=== PATIENT | male | born 1975 | race Caucasian/White ===

== ENCOUNTER 2016-11-30 03:06 | Emergency (ER) | payer BC ==
[2016-11-30 03:17] VITALS: BP 134/86
[2016-11-30] MEDS ORDERED: Ondansetron ODT TAB* 4 MG PO ONE (03:29)
[2016-11-30] MEDS ORDERED: LORazepam TAB(*) 1 MG PO ONE (03:29)
--- NOTE | 2016-11-30 03:33 | ED ---
Edie Couch Edward, scribed for Bronson Maradiaga MD on 11/30/16 at 0314 . Psychiatric Complaint - HPI Summary HPI Summary: 41 y/o male presents to ED c/o anxiety and sleep disturbance for several days. Patient's anxiety is mostly job related, which became worse in the last week. Associated sx: nausea and diarrhea. Pt states he has a terrible job and has problems with his boss. He states that his symptoms are worse tonight because he knows he has work tomorrow. Allergic to penicillin. - History Of Current Complaint Chief Complaint: EDGeneral Hx Obtained From: Patient Onset/Duration: Lasting Days, Still Present Timing: Weeks - around 1 week Character: Anxious Aggravating Factor(s): Recent Stress - Job related stress Associated Signs And Symptoms: Positive: Sleep Disturbance - Allergies/Home Medications Allergies/Adverse Reactions: Allergies Allergy/AdvReac Type Severity Reaction Status Date / Time Penicillins [PCN] Allergy Unknown Verified 08/10/15 09:51 Reaction Details PMH/Surg Hx/FS Hx/Imm Hx Previously Healthy: No Respiratory History: Reports: Hx Asthma Infectious Disease History: Denies: Traveled Outside the [place] in Last 30 Days - Social History Occupation: Employed Full-time Lives: With Family Alcohol Use: None Hx Substance Use: No Substance Use Type: Reports: None Hx Tobacco Use: Yes Smoking Status (MU): Current Some Day Smoker - no cigarettes. a few cigars per week Type: Cigars Review of Systems Constitutional: Negative Eyes: Negative ENT: Negative Cardiovascular: Negative Respiratory: Negative Positive: Diarrhea, Nausea Genitourinary: Negative Musculoskeletal: Negative Skin: Negative Neurological: Negative Positive: Anxious, Other - Sleep disturbance All Other Systems Reviewed And Are Negative: Yes Physical Exam Triage Information Reviewed: Yes Vital Signs On Initial Exam: Initial Vitals Temp Pulse Resp BP Pulse Ox 97.1 F 61 20 134/86 98 11/30/16 03:12 11/30/16 03:12 11/30/16 03:12 11/30/16 03:12 11/30/16 03:12 Vital Signs Reviewed: Yes Appearance: Positive: Well-Appearing, No Pain Distress Skin: Positive: Warm Head/Face: Positive: Normal Head/Face Inspection Eyes: Positive: CECILIA ENT: Positive: Hearing grossly normal Neck: Positive: Supple Respiratory/Lung Sounds: Positive: Breath Sounds Present Cardiovascular: Positive: RRR Abdomen Description: Positive: Nontender, Soft Musculoskeletal: Positive: Strength/ROM Intact Neurological: Positive: Alert, Oriented to Person Place, Time, Normal Gait Psychiatric: Positive: Anxious Diagnostics - Vital Signs Vital Signs Temp Pulse Resp BP Pulse Ox 11/30/16 03:12 97.1 F 61 20 134/86 98 - Laboratory Lab Statement: Any lab studies that have been ordered have been reviewed, and results considered in the medical decision making process. Re-Evaluation - Re-Evaluation First Eval Comment: pt requesting help with sleep tonight, pt d/c home with ativan x 1, states he will f/u with pcp/therapist Course/Dx - Course Assessment/Plan: 41 y/o male presents to ED c/o anxiety and sleep disturbance for several days. Patient's anxiety is mostly job related, which became worse in the last week. Associated sx: nausea and diarrhea. Pt states he has a terrible job and has problems with his boss. He states that his symptoms are worse tonight because he knows he has work tomorrow. Allergic to penicillin. Patient will be discharged with insomnia. - Differential Dx/Clinical Impression Provider Diagnosis: Insomnia Discharge - Discharge Plan Condition: Stable Disposition: HOME Patient Education Materials: Insomnia (ED) Forms: *Work Release Referrals: Lauryn Moreno MD [Primary Care Provider] - 3 Days (Please f/u in 2-3 days.) The documentation as recorded by the Edie euceda Edward accurately reflects the service I personally performed and the decisions made by me, Bronson Maradiaga MD.
== END 2016-11-30 03:47 | disposition home or self-care (01) ==
LOC: ED 03:06
DX: G47.00 Insomnia, unspecified (principal); J45.909 Unspecified asthma, uncomplicated; Z88.0 Allergy status to penicillin; Z72.0 Tobacco use
CPT/HCPCS: 99282; A9270-GY

== ENCOUNTER 2017-05-13 18:24 | Emergency (ER) | payer BC ==
--- OUTSIDE RECORDS SUMMARY | 2017-05-13 18:29 | XMS REPORT ---
:1975 External Reference #:[id number] Author Organization [facility] Address [facility] [place] [address] Phone [phone] Care Team Providers Name Role Phone Lauryn Moreno MD Care Team Information Life Educator Unavailable Payers Type Date Identification Numbers Payment Provider Subscriber Commercial Expires: Policy Number: [employer] Of [employer]ABIA Howell 2015 [id number] PayID: [id number] [address] [address] BOZENA Patel [address] Medigap Part B Effective: 2015 Policy Number: [employer] Of [employer]IA Howell [id number] Expires: 2016 Group Name: [employer] [address] [address] PayID: [id number] BOZENA Patel [address]677 Medigap Part B Effective: 2016 Policy Number: BS Of RABIA Howell [id number] Expires: 2017 PayID: [id number] [address] [address] BOZENA Patel [address] Problems Date Description Provider Status Onset: 04/06/2016 History of malignant melanoma of the Lauryn Moreno MD Active skin Onset: 08/19/2015 Congenital macroglossia Lauryn Moreno MD Active Onset: 08/19/2015 Hypertrophy of tonsils Lauryn Moreno MD Active Onset: 08/19/2015 Difficulty breathing Lauryn Moreno MD Active Family History Date Family Member(s) Problem(s) Comments General Stroke Grandmother General Prostate Cancer Grandfather Social History Type Date Description Comments Marital Status No kids Occupation Negative For Currently Working Cigars Patient is a current cigar 5/wk smoker, smokes some days ETOH Use Currently consumes alcohol 3-4 glasses of wine a week. Recreational Drug Use Denies Drug Use Daily Caffeine Consumes on average 1 cup of coffee per day Exercise Type/Frequency Does not exercise Allergies, Adverse Reactions, Alerts Date Description Reaction Status Severity Comments 10/11/2014 Penicillin Urticaria active Mild to Moderate Medications Medication Date Status Form Strength Qnty SIG Indications Ordering Provider Alprazolam 12/01 Active Tablets 0.5mg 10tab Take 1/2 to 1 F41.0 Combs /2016 s tablet by mouth A [place], at bed time as MD needed for panic state Vitamin D3 04/06 Active Capsules 2000Unit Take 1 capsule by E55.9 Combs /2015 mouth daily for A [place], vitamin d MD deficiency No Active 04/06 Hx Unknown Medications /2015 - 04/06 Ranitidine 08/18 Hx Capsules 150mg 1 by mouth every K21.9 Combs HCL /2015 day as needed 1/2 A [place], - hour before meal 04/06 Nexium 07/08 Hx Capsules 20mg take 1 capsule by K21.9 Unknown /2015 DR quezada daily for - gastroesophageal 08/18 reflux disease /2015 with current symptoms Xyzal 05/10 Hx Tablets 5mg take 1 tablet by 995.3 Rubinstei /2013 mouth daily in n, - the evening for Syd 04/06 allergy Immunizations CPT Code Status Date Vaccine Lot # [id number] Given 04/06/2016 Influenza Virus Split 3 Yrs And Above For [id number] Intramuscular Use 13024 Given 10/11/2014 Tdap-Tetanus, Diphtheria Toxoids/Acellular [id number] Pertussis Vaccine 7+ Vital Signs Date Vital Result Comment 04/19/2017 Body Temperature 97.9 F O2 % BldC Oximetry 96 % Heart Rate 75 /min BP Systolic 125 mmHg BP Diastolic 80 mmHg BMI (Body Mass Index) 34.5 kg/m2 Weight 244.00 lb Height 70.50 inches 5'10.50" 12/01/2016 Heart Rate 78 /min BP Systolic 125 mmHg BP Diastolic 70 mmHg Weight 224.00 lb 09/24/2016 Heart Rate 62 /min BP Systolic 105 mmHg BP Diastolic 75 mmHg Weight 230.00 lb 04/06/2016 O2 % BldC Oximetry 96 % Heart Rate 66 /min BP Systolic 110 mmHg BP Diastolic 70 mmHg BMI (Body Mass Index) 33.1 kg/m2 Weight 234.00 lb Height 70.5 inches 5'10.50" 08/19/2015 O2 % BldC Oximetry 99 % Heart Rate 64 /min BP Systolic 105 mmHg BP Diastolic 70 mmHg 10/11/2014 Body Temperature 97.8 F O2 % BldC Oximetry 99 % Heart Rate 50 /min BP Systolic 110 mmHg BP Diastolic 70 mmHg BMI (Body Mass Index) 30.3 kg/m2 Weight 211.00 lb Height 70 inches 5'10" Results Test Date Test Result H/L Range Note CBC No Diff 04/20/2017 White Blood Count 9.7 10^3/uL 3.5-10.8 Red Blood Count 5.70 10^6/uL High 4.0-5.4 Hemoglobin 17.1 g/dL 14.0-18.0 Hematocrit 49 % 42-52 Mean Corpuscular Volume 86 fL 80-94 Mean Corpuscular Hemoglobin 30 pg 27-31 Mean Corpuscular HGB Conc 35 g/dL 31-36 Red Cell Distribution Width 13 % 10.5-15 Platelet Count 236 10^3/uL 150-450 Mean Platelet Volume 7 um3 Low 7.4-10.4 Comp Metabolic Panel 04/20/2017 Sodium 139 mmol/L 133-145 Potassium 4.3 mmol/L 3.5-5.0 Chloride 103 mmol/L 101-111 Co2 Carbon Dioxide 28 mmol/L 22-32 Anion Gap 8 mmol/L 2-11 Glucose 102 mg/dL High 70-100 Blood Urea Nitrogen 18 mg/dL 6-24 Creatinine 1.18 mg/dL High 0.67-1.17 BUN/Creatinine Ratio 15.3 8-20 Calcium 9.9 mg/dL 8.6-10.3 Total Protein 6.8 g/dL 6.4-8.9 Albumin 4.6 g/dL 3.2-5.2 Globulin 2.2 g/dL 2-4 Albumin/Globulin Ratio 2.1 1-3 Total Bilirubin 1.10 mg/dL High 0.2-1.0 Alkaline Phosphatase 44 U/L 34-104 Alt 35 U/L 7-52 Ast 22 U/L 13-39 Egfr Non- 68.4 >60 Egfr 87.9 >60 1 Lipid Profile (Trig/Chol/HDL) 04/20/2017 Triglycerides 170 mg/dL High < 150 2 Cholesterol 164 mg/dL <200 3 HDL Cholesterol 39.2 mg/dL Low >40 4 LDL Cholesterol 91 mg/dL <130 5 Urinalysis Profile 10/03/2016 Urine Color Terri Urine Appearance Turbid Urine Specific [place] 1.020 1.010-1.030 Urine pH 5.0 5-9 Urine Urobilinogen Negative Negative Urine Ketones Trace Negative Urine Protein Negative Negative Urine Leukocytes Negative Negative Urine Blood 1+ Negative Urine Nitrite Negative Negative Urine Bilirubin Negative Negative Urine Glucose Negative Negative Urine White Blood Cell Absent Absent Urine Red Blood Cell Trace(0-2/hpf) Absent Urine Bacteria Absent Absent Laboratory test finding 09/24/2016 Hemoglobin A1c (Glyco HGB) 5.0 % Less than 6.0 6 Vitamin D Total 25(Oh) 21.0 ng/mL Low 30-50 Basic Metabolic Panel 09/24/2016 Sodium 138 mmol/L 133-145 Potassium 4.1 mmol/L 3.5-5.0 Chloride 107 mmol/L 101-111 Co2 Carbon Dioxide 24 mmol/L 22-32 Anion Gap 7 mmol/L 2-11 Glucose 92 mg/dL 70-100 Blood Urea Nitrogen 18 mg/dL 6-24 Creatinine 1.08 mg/dL 0.67-1.17 BUN/Creatinine Ratio 16.7 8-20 Calcium 9.6 mg/dL 8.6-10.3 Egfr Non- 76.1 >60 Egfr 97.9 >60 7 Urinalysis Profile 09/24/2016 Urine Color Yellow Urine Appearance Clear Urine Specific [place] 1.011 1.010-1.030 Urine pH 5.0 5-9 Urine Urobilinogen Negative Negative Urine Ketones Negative Negative Urine Protein Negative Negative Urine Leukocytes Negative Negative Urine Blood 1+ Negative Urine Nitrite Negative Negative Urine Bilirubin Negative Negative Urine Glucose Negative Negative Urine White Blood Cell Absent Absent Urine Red Blood Cell Trace(0-2/hpf) Absent Urine Bacteria Absent Absent Urine Sperm Present Absent Laboratory test finding 04/06/2016 Vitamin D Total 25(Oh) 21.0 ng/mL Low 30-50 Comp Metabolic Panel 04/06/2016 Sodium 138 mmol/L 133-145 Potassium 4.0 mmol/L 3.5-5.0 Chloride 107 mmol/L 101-111 Co2 Carbon Dioxide 25 mmol/L 22-32 Anion Gap 6 mmol/L 2-11 Glucose 107 mg/dL High 70-100 Blood Urea Nitrogen 16 mg/dL 6-24 Creatinine 1.12 mg/dL 0.67-1.17 BUN/Creatinine Ratio 14.3 8-20 Calcium 9.2 mg/dL 8.6-10.3 Total Protein 6.6 g/dL 6.4-8.9 Albumin 4.2 g/dL 3.2-5.2 Globulin 2.4 g/dL 2-4 Albumin/Globulin Ratio 1.8 1-3 Total Bilirubin 0.50 mg/dL 0.2-1.0 Alkaline Phosphatase 46 U/L 34-104 Alt 33 U/L 7-52 Ast 19 U/L 13-39 Egfr Non- 73.0 >60 Egfr 93.9 >60 8 CBC No Diff 04/06/2016 White Blood Count 8.6 10^3/uL 3.5-10.8 Red Blood Count 5.53 10^6/uL High 4.0-5.4 Hemoglobin 16.2 g/dL 14.0-18.0 Hematocrit 48 % 42-52 Mean Corpuscular Volume 86 fL 80-94 Mean Corpuscular Hemoglobin 29 pg 27-31 Mean Corpuscular HGB Conc 34 g/dL 31-36 Red Cell Distribution Width 13 % 10.5-15 Platelet Count 228 10^3/uL 150-450 Mean Platelet Volume 8 um3 7.4-10.4 CBC Auto Diff 08/10/2015 White Blood Count 8.1 10^3/uL 3.5-10.8 Red Blood Count 5.90 10^6/uL High 4.0-5.4 Hemoglobin 17.5 g/dL 14.0-18.0 Hematocrit 51 % 42-52 Mean Corpuscular Volume 86 fL 80-94 Mean Corpuscular Hemoglobin 30 pg 27-31 Mean Corpuscular HGB Conc 35 g/dL 31-36 Red Cell Distribution Width 13 % 10.5-15 Platelet Count 204 10^3/uL 150-450 Mean Platelet Volume 7 um3 Low 7.4-10.4 Abs Neutrophils 4.4 10^3/uL 1.5-7.7 Abs Lymphocytes 2.8 10^3/uL 1.0-4.8 Abs Monocytes 0.6 10^3/uL 0-0.8 Abs Eosinophils 0.1 10^3/uL 0-0.6 Abs Basophils 0.2 10^3/uL 0-0.2 Abs Nucleated RBC 0.03 10^3/uL Granulocyte % 53.9 % 38-83 Lymphocyte % 34.9 % 25-47 Monocyte % 7.5 % 1-9 Eosinophil % 1.1 % 0-6 Basophil % 2.6 % High 0-2 Nucleated Red Blood Cells % 0.3 Comp Metabolic Panel 08/10/2015 Sodium 138 mmol/L 133-145 Potassium 4.1 mmol/L 3.5-5.0 Chloride 107 mmol/L 101-111 Co2 Carbon Dioxide 27 mmol/L 22-32 Anion Gap 4 mmol/L 2-11 Glucose 97 mg/dL 70-100 Blood Urea Nitrogen 17 mg/dL 6-24 Creatinine 1.10 mg/dL 0.67-1.17 BUN/Creatinine Ratio 15.5 8-20 Calcium 9.3 mg/dL 8.6-10.3 Total Protein 7.0 g/dL 6.4-8.9 Albumin 4.6 g/dL 3.2-5.2 Globulin 2.4 g/dL 2-4 Albumin/Globulin Ratio 1.9 1-3 Total Bilirubin 0.90 mg/dL 0.2-1.0 Alkaline Phosphatase 42 U/L 34-104 Alt 25 U/L 7-52 Ast 19 U/L 13-39 Egfr Non- 74.9 >60 Egfr 96.3 >60 9 Laboratory test finding 08/10/2015 Troponin I 0.00 ng/mL <0.03 10 Xray 11/12/2014 Chest, 2 Views Normal CBC No Diff 10/17/2014 White Blood Count 8.3 10^3/uL 4.8-10.8 11 Red Blood Count 5.37 10^6/uL 4.0-5.4 11 Hemoglobin 16.1 g/dL 14.0-18.0 11 Hematocrit 49 % 42-52 11 Mean Corpuscular Volume 91 fL 80-94 11 Mean Corpuscular Hemoglobin 30 pg 27-31 11 Mean Corpuscular HGB Conc 33 g/dL 31-36 11 Red Cell Distribution Width 13 % 10.5-15 11 Platelet Count 232 10^3/uL 150-450 11 Mean Platelet Volume 8 um3 7.4-10.4 11 Comp Metabolic Panel 10/17/2014 Sodium 136 mmol/L 133-145 11 Potassium 4.4 mmol/L 3.5-5.0 11 Chloride 105 mmol/L 101-111 11 Co2 Carbon Dioxide 29 mmol/L 22-32 11 Anion Gap 2 mmol/L 2-11 11 Glucose 92 mg/dL 70-100 11 Blood Urea Nitrogen 18 mg/dL 6-24 11 Creatinine 1.13 mg/dL 0.67-1.17 11 BUN/Creatinine Ratio 15.9 8-20 11 Calcium 9.2 mg/dL 8.6-10.3 11 Total Protein 6.2 g/dL Low 6.4-8.9 11 Albumin 4.3 g/dL 3.2-5.2 11 Globulin 1.9 g/dL Low 2-4 11 Albumin/Globulin Ratio 2.3 1-3 11 Total Bilirubin 1.10 mg/dL High 0.2-1.0 11 Alkaline Phosphatase 46 U/L 34-104 11 Alt 26 U/L 7-52 11 Ast 21 U/L 13-39 11 Egfr Non- 73.0 >60 11 Egfr 93.9 >60 11, 12 Lipid Profile (Trig/Chol/HDL) 10/17/2014 Triglycerides 63 mg/dL 11, 13 Cholesterol 105 mg/dL 11, 14 HDL Cholesterol 42.0 mg/dL 11, 15 LDL Cholesterol 50 mg/dL 11, 16 1 Because ethnic data is not always readily available, this report includes an eGFR for both -Americans and non- Americans. The National Kidney Disease Education Program (NKDEP) does not endorse the use of the MDRD equation for patients that are not between the ages of 18 and 70, are , have extremes of body size, muscle mass, or nutritional status, or are non- or non-. According to the National Kidney Foundation, irrespective of diagnosis, the stage of the disease is based on the level of kidney function: Stage Description GFR(mL/min/1.73 m(2)) 1 Kidney damage with normal or decreased GFR 90 2 Kidney damage with mild decrease in GFR 60-89 3 Moderate decrease in GFR 30-59 4 Severe decrease in GFR 15-29 5 Kidney failure <15 (or dialysis) 2 Desirable: <150 Borderline High: 150-199 High: 200-499 Very High: >500 3 Desirable: <200 Borderline High: 200-239 High: >239 4 Low: <40 Desirable: 40-60 High: >60 5 Desirable: <100 Near Optimal: 100-129 Borderline High: 130-159 High: 160-189 Very High: >189 6 Therapeutic target for the treatment of diabetes Mellitus patients is <7% HBA1C, and in selective patients <6.0%.Please refer to [place] [employer] Diabetic care guidelines for further information. 7 Because ethnic data is not always readily available, this report includes an eGFR for both -Americans and non- Americans. The National Kidney Disease Education Program (NKDEP) does not endorse the use of the MDRD equation for patients that are not between the ages of 18 and 70, are , have extremes of body size, muscle mass, or nutritional status, or are non- or non-. According to the National Kidney Foundation, irrespective of diagnosis, the stage of the disease is based on the level of kidney function: Stage Description GFR(mL/min/1.73 m(2)) 1 Kidney damage with normal or decreased GFR 90 2 Kidney damage with mild decrease in GFR 60-89 3 Moderate decrease in GFR 30-59 4 Severe decrease in GFR 15-29 5 Kidney failure <15 (or dialysis) 8 Because ethnic data is not always readily available, this report includes an eGFR for both -Americans and non- Americans. The National Kidney Disease Education Program (NKDEP) does not endorse the use of the MDRD equation for patients that are not between the ages of 18 and 70, are , have extremes of body size, muscle mass, or nutritional status, or are non- or non-. According to the National Kidney Foundation, irrespective of diagnosis, the stage of the disease is based on the level of kidney function: Stage Description GFR(mL/min/1.73 m(2)) 1 Kidney damage with normal or decreased GFR 90 2 Kidney damage with mild decrease in GFR 60-89 3 Moderate decrease in GFR 30-59 4 Severe decrease in GFR 15-29 5 Kidney failure <15 (or dialysis) 9 Because ethnic data is not always readily available, this report includes an eGFR for both -Americans and non- Americans. The National Kidney Disease Education Program (NKDEP) does not endorse the use of the MDRD equation for patients that are not between the ages of 18 and 70, are , have extremes of body size, muscle mass, or nutritional status, or are non- or non-. According to the National Kidney Foundation, irrespective of diagnosis, the stage of the disease is based on the level of kidney function: Stage Description GFR(mL/min/1.73 m(2)) 1 Kidney damage with normal or decreased GFR 90 2 Kidney damage with mild decrease in GFR 60-89 3 Moderate decrease in GFR 30-59 4 Severe decrease in GFR 15-29 5 Kidney failure <15 (or dialysis) 10 Reference Range and Interpretation: TnI (ng/mL) Interpretation Less Than 0.03 ng/mL Not supportive of diagnosis of NE 0.03 - 0.50 ng/mL Indeterminate: suggest serial studies if clinically indicated. Greater than 0.5 ng/mL Consistent with diagnosis of NE 11 PT IS FASTING 12 Because ethnic data is not always readily available, this report includes an eGFR for both -Americans and non- Americans. The National Kidney Disease Education Program (NKDEP) does not endorse the use of the MDRD equation for patients that are not between the ages of 18 and 70, are , have extremes of body size, muscle mass, or nutritional status, or are non- or non-. According to the National Kidney Foundation, irrespective of diagnosis, the stage of the disease is based on the level of kidney function: Stage Description GFR(mL/min/1.73 m(2)) 1 Kidney damage with normal or decreased GFR 90 2 Kidney damage with mild decrease in GFR 60-89 3 Moderate decrease in GFR 30-59 4 Severe decrease in GFR 15-29 5 Kidney failure <15 (or dialysis) 13 Desirable <150 Borderline high 150-199 High 200-499 Very High >500 14 Desirable <200 Borderline high 200-239 High >239 15 Low <40 Desirable: 40-60 High: >60 16 Desirable: <100 mg/dL Near Optimal: 100-129 mg/dL Borderline High: 130-159 mg/dL High: 160-189 mg/dL Very High: >189 mg/dL Procedures Description No Information Encounters Type Date Location Provider CPT E/M Dx Office Visit 04/19/2017 10:00a [place] [address] Z00.01 Z85.820 R06.83 M54.2 Office Visit 12/01/2016 2:40p [place] [address] F43.22 F41.0 Office Visit 09/24/2016 9:40a [place] [address] R73.01 E55.9 Office Visit 04/06/2016 10:40a [place] [address] Z00.01 Z85.820 J35.1 R06.83 R73.01 E55.9 Z23 Office Visit 08/19/2015 2:40p [place] [address] R07.9 K21.9 R06.83 J35.1 Q38.2 Office Visit 11/12/2014 2:00p [place] [address] 474.11 786.09 V10.82 789.06 530.81 Office Visit 10/11/2014 3:00p [place] [address] V70.0 530.81 789.06 786.09 474.11 V06.1 Plan of Care 04/19/2017 - Lauryn Moreno MDZ00.01 Encounter for general adult medical exam w abnormal findingsComments:Age, sex and risk appropriate preventive care recommendations discussed with patient. Patient verbalized understanding. Warned with weight gain and associated risks.Z85.820 Personal history of malignant melanoma of skinComments:Following with a specialist in [facility].R06.83 SnoringComments:Advised to follow with sleep clinic for further evaluation and management of ANALY.M54.2 CervicalgiaNew Therapy:Comments:Likely muscular problem.He wishes to follow with a massage therapist who has helped him in past for same issue.AllFollow up:Labs in few days. Follow on sleep clinic referral and arrange appointment after sleep study. 1 year for physical with labs.
[2017-05-13 18:34] VITALS: BP 137/81
--- NOTE | 2017-05-13 18:55 | UC ---
Throat Pain/Nasal Calvin HPI - HPI Summary HPI Summary: 41 y/o presents with a sore throat and dry cough for 1 week. He tells me that 1 week ago he developed a sore throat and soon thereafter developed a nonproductive cough. Over the last week he has been taking mucinex, dayquill/ nyquill, and sudafed with little relief. His symptoms are persisting today. He denies fever, chills, SOB, chest pain, abdominal pain, n/v/d/c, or body aches. - History of Current Complaint Chief Complaint: UCRespiratory Stated Complaint: SORE THROAT, AND SINUS CONGESTION Time Seen by Provider: 05/13/17 18:54 Hx Obtained From: Patient Severity: Moderate Pain Intensity: 8 Pain Scale Used: 0-10 Numeric Cough: Nonproductive - Allergies/Home Medications Allergies/Adverse Reactions: Allergies Allergy/AdvReac Type Severity Reaction Status Date / Time Penicillins [PCN] Allergy Unknown Verified 05/13/17 18:35 Reaction Details Home Medications: Home Medications Daytime Cold Medicine 325-15 mg/15Ml 15 mg PO ONCE 05/13/17 [History Confirmed 05/13/17] PMH/Surg Hx/FS Hx/Imm Hx Previously Healthy: Yes - Surgical History Surgical History: Yes Surgery Procedure, Year, and Place: 2016 melanoma removed - Social History Occupation: Employed Full-time Lives: With Family Alcohol Use: None Substance Use Type: None Smoking Status (MU): Current Some Day Smoker Type: Cigars Cessation Counseling: Counseled 3+Min - 10 Min - Immunization History Most Recent Influenza Vaccination: 2016 Review of Systems Constitutional: Negative Skin: Negative Eyes: Negative ENT: Sore Throat Respiratory: Cough Cardiovascular: Negative Gastrointestinal: Negative All Other Systems Reviewed And Are Negative: Yes Physical Exam Triage Information Reviewed: Yes Appearance: Well-Appearing, Well-Nourished Vital Signs: Initial Vital Signs Temp 98.4 F 05/13/17 18:29 Pulse 84 05/13/17 18:29 Resp 20 05/13/17 18:29 BP 137/81 05/13/17 18:29 Pulse Ox 98 05/13/17 18:29 Vital Signs Reviewed: Yes Eyes: Positive: Conjunctiva Clear. Negative: Conjunctiva Inflamed, Discharge ENT: Positive: Hearing grossly normal, Pharyngeal erythema, TMs normal, Tonsillar swelling - 2+, Uvula midline. Negative: Nasal congestion, Nasal drainage, TM bulging, TM dull, TM red, Tonsillar exudate, Muffled voice, Hoarse voice, Sinus tenderness Neck: Positive: Supple, Nontender, No Lymphadenopathy Respiratory: Positive: Chest non-tender, No respiratory distress, No accessory muscle use, Wheezing - RLL and LLL. Negative: Crackles Cardiovascular: Positive: RRR, No Murmur, Pulses Normal Neurological: Positive: Alert Psychological: Positive: Age Appropriate Behavior Skin: Negative: rashes Throat Pain/Nasal Course/Dx - Course Course Of Treatment: POC strep was negative. Suspect bronchitis and viral pharyngitis. He tells me that he has had strep in the past with negative results. Given this and the amount of his discomfort will treat with zpak, tessalon, and lidocaine viscous for throat pain. - Differential Dx/Diagnosis Differential Diagnosis/HQI/PQRI: Influenza, Laryngitis, Mononucleosis, Pharyngitis, Tonsillitis, URI Provider Diagnoses: Bronchitis. Pharyngitis Discharge - Discharge Plan Condition: Stable Disposition: HOME Prescriptions: Azithromycin TAB* [Zithromax TAB (Z-TAI) 250 mg #6 tabs] 2 tab PO .TODAY, THEN 1 DAILY #1 tai Benzonatate CAP* [Tessalon 100 MG CAP*] 100 mg PO TID PRN #21 cap PRN Reason: Cough Lidocaine 2% VISCOUS* [Xylocaine 2% Viscous*] 15 ml SWISH SWAL TID PRN #150 ml PRN Reason: Sore Throat Patient Education Materials: Pharyngitis (ED) Referrals: Lauryn Moreno MD [Primary Care Provider] - Additional Instructions: If you develop a fever, shortness of breath, chest pain, new or worsening symptoms - please call your PCP or go to the ED.
== END 2017-05-13 19:30 | disposition home or self-care (01) ==
LOC: UCEAST 18:24
DX: J40 Bronchitis, not specified as acute or chronic (principal); J02.9 Acute pharyngitis, unspecified; Z88.0 Allergy status to penicillin; F17.290 Nicotine dependence, other tobacco product, uncomplicated
CPT/HCPCS: 87651; 99212; G0463